=== PATIENT | male | born 1960 | race Caucasian/White ===

== ENCOUNTER 2020-02-01 10:15 | Emergency (ER) | payer OTHER ==
[2020-02-01] MEDS ORDERED: Sodium Chloride 0.9% 10 ML Syringe FLUSH PRN (10:54)
[2020-02-01] MEDS ORDERED: Sodium Chloride 0.9% 1,000 ML IV SCH (11:00)
--- NOTE | 2020-02-01 11:09 | EDM.PDOC ---
ED HPI GENERAL MEDICAL PROBLEM - General Chief Complaint: Drug or Alcohol Abuse Stated Complaint: INTOXICATED Time Seen by Provider: 02/01/20 10:41 Source of Information: Reports: Patient, Family (), RN Notes Reviewed - History of Present Illness INITIAL COMMENTS - FREE TEXT/NARRATIVE: 59 yr old male brought in by for eval of weakness, "hallucinations". He has hx of strong alcohol abuse and dependency. He claims he has not had alcohol for about 4 days. He states he is jaundiced. He has a chronic cough, nonproductive. No chest or abd pain at this time. He also smokes. Feels weak and dizzy when standing. Upper Back Pain Score (Numeric/FACES): 6 - Related Data Allergies Allergy/AdvReac Type Severity Reaction Status Date / Time Penicillins Allergy Rash Verified 02/01/20 10:30 Home Meds: Home Meds . [No Known Home Meds] 05/11/15 [History] Past Medical History - Past Health History Medical/Surgical History: Denies Medical/Surgical History Cardiovascular History: Reports: Hypertension Other Gastrointestinal History: tranaminitis Musculoskeletal History: Reports: Osteoarthritis Other Musculoskeletal History: R tibia intramedullary félix fixation Neurological History: Reports: Concussion - Infectious Disease History Infectious Disease History: Reports: Hepatitis C - Past Surgical History Neurological Surgical History: Reports: None Social & Family History - Family History HEENT: Reports: None Cardiac: Reports: [place], Other (See Below) Other Cardiac Family History: father of a NH at 51 years old Musculoskeletal: Reports: None Neurological: Reports: None Immunologic: Reports: None Oncologic: Reports: Liver, Other (See Below) Other Oncologic Family History: mother passed from liver cancer - Tobacco Use Tobacco Use Status *Q: Current Every Day Tobacco User Years of Tobacco use: 40 Packs/Tins Daily: 0.4 - Caffeine Use Caffeine Use: Reports: Coffee - Recreational Drug Use Recreational Drug Use: No ED ROS GENERAL - Review of Systems Review Of Systems: See Below Constitutional: Denies: Fever HEENT: Reports: Throat Pain (mild, pt states he has "laryngitis") Respiratory: Reports: Shortness of Breath, Cough Cardiovascular: Denies: Chest Pain GI/Abdominal: Denies: Abdominal Pain, Nausea, Vomiting Musculoskeletal: Reports: No Symptoms Skin: Reports: Change in Color (scleral icterus) Neurological: Reports: Dizziness, Weakness (generalized) ED EXAM, GENERAL - Physical Exam Exam: See Below General Appearance: Alert, Mild Distress, Other (mildly confused but answers simple questions) Eye Exam: Bilateral Eye: PERRL, Other (bilat scleral iceteris) Head: Atraumatic Neck: Supple, Other (No JVD) Respiratory/Chest: No Respiratory Distress, Lungs Clear, Normal Breath Sounds Cardiovascular: Tachycardia GI/Abdominal: Soft, Non-Tender Extremities: No: Pedal Edema, Leg Pain Neurological: Alert, No Motor/Sensory Deficits Skin Exam: Warm, Dry, Normal Color (other than scleral icteris) Course - Vital Signs Last Recorded V/S: Last Vital Signs Temp 97.4 F 02/01/20 10:25 Pulse 146 H 02/01/20 17:30 Resp 28 H 02/01/20 17:30 BP 159/87 H 02/01/20 17:30 Pulse Ox 92 L 02/01/20 17:30 - Orders/Labs/Meds Labs: Laboratory Tests 02/01/20 02/01/20 02/01/20 Range/Units 10:45 10:45 10:45 WBC 18.66 H (4.23-9.07) K/mm3 RBC 3.87 L (4.63-6.08) M/mm3 Hgb 14.1 D (13.7-17.5) gm/dl Hct 40.3 (40.1-51.0) % MCV 104.1 H (79.0-92.2) fl MCH 36.4 H (25.7-32.2) pg MCHC 35.0 (32.2-35.5) g/dl RDW Std Deviation 55.6 H (35.1-43.9) fL Plt Count 86 L D (163-337) K/mm3 MPV 11.3 (9.4-12.3) fl Neut % (Auto) 87.2 H (34.0-67.9) % Lymph % (Auto) 4.9 L (21.8-53.1) % [place] % (Auto) 5.0 L (5.3-12.2) % Eos % (Auto) 0.2 L (0.8-7.0) Baso % (Auto) 0.3 (0.1-1.2) % Neut # (Auto) 16.27 H (1.78-5.38) K/mm3 Lymph # (Auto) 0.91 L (1.32-3.57) K/mm3 [place] # (Auto) 0.94 H (0.30-0.82) K/mm3 Eos # (Auto) 0.04 (0.04-0.54) K/mm3 Baso # (Auto) 0.05 (0.01-0.08) K/mm3 Manual Slide Review Abnormal smear PT (9.7-11.7) SECONDS INR D-Dimer, Quantitative (0.19-0.50) mg/L Puncture Site ABG pH (7.35-7.45) ABG pCO2 (35.0-45.0) mmHg ABG pO2 (80.0-100.0) mmHg ABG HCO3 (22.0-26.0) meq/L ABG O2 Saturation (96.0-97.0) % ABG Base Excess (-2-2.0) John Test A-a Gradient mmHg O2 Delivery Device Oxygen Flow Rate FiO2 (21.00-100.00) % Sodium 129 L (136-145) mEq/L Potassium 4.0 (3.5-5.1) mEq/L Chloride 93 L (98-107) mEq/L Carbon Dioxide 12 L D (21-32) mEq/L Anion Gap 28.0 H (5-15) BUN 78 H D (7-18) mg/dL Creatinine 4.5 H D (0.7-1.3) mg/dL Est Cr Clr Drug Dosing 18.25 mL/min Estimated GFR (MDRD) 13 (>60) mL/min BUN/Creatinine Ratio 17.3 (14-18) Glucose 105 (74-106) mg/dL Lactic Acid (0.4-2.0) mmol/L Calcium 7.5 L (8.5-10.1) mg/dL Ferritin (26-388) ng/ml Total Bilirubin 9.4 H (0.2-1.0) mg/dL AST 122 H (15-37) U/L ALT 47 (16-63) U/L Alkaline Phosphatase 151 H (46-116) U/L Lactate Dehydrogenase 325 H (85-227) U/L C-Reactive Protein 24.7 H* (<1.0) mg/dL NT-Pro-B Natriuret Pep (0-125) pg/mL Total Protein 8.2 (6.4-8.2) g/dl Albumin 1.7 L (3.4-5.0) g/dl Globulin 6.5 gm/dL Albumin/Globulin Ratio 0.3 L (1-2) Urine Color (Yellow) Urine Appearance (Clear) Urine pH (5.0-8.0) Ur Specific [place] (1.005-1.030) Urine Protein (Negative) Urine Glucose (UA) (Negative) Urine Ketones (Negative) Urine Occult Blood (Negative) Urine Nitrite (Negative) Urine Bilirubin (Negative) Urine Urobilinogen (0.2-1.0) Ur Leukocyte Esterase (Negative) Urine RBC (0-5) /hpf Urine WBC (0-5) /hpf Ur Squamous Epith Cells (0-5) /hpf Urine Bacteria (FEW) /hpf Urine Mucus (FEW) /hpf Urine Trichomonas (NOT SEEN) Ethyl Alcohol 0.00 (0.00) gm% SARS-CoV-2 RNA (TIFFANIE) (NEGATIVE) 02/01/20 02/01/20 02/01/20 Range/Units 10:45 10:45 10:45 WBC (4.23-9.07) K/mm3 RBC (4.63-6.08) M/mm3 Hgb (13.7-17.5) gm/dl Hct (40.1-51.0) % MCV (79.0-92.2) fl MCH (25.7-32.2) pg MCHC (32.2-35.5) g/dl RDW Std Deviation (35.1-43.9) fL Plt Count (163-337) K/mm3 MPV (9.4-12.3) fl Neut % (Auto) (34.0-67.9) % Lymph % (Auto) (21.8-53.1) % [place] % (Auto) (5.3-12.2) % Eos % (Auto) (0.8-7.0) Baso % (Auto) (0.1-1.2) % Neut # (Auto) (1.78-5.38) K/mm3 Lymph # (Auto) (1.32-3.57) K/mm3 [place] # (Auto) (0.30-0.82) K/mm3 Eos # (Auto) (0.04-0.54) K/mm3 Baso # (Auto) (0.01-0.08) K/mm3 Manual Slide Review PT (9.7-11.7) SECONDS INR D-Dimer, Quantitative 20.46 H (0.19-0.50) mg/L Puncture Site ABG pH (7.35-7.45) ABG pCO2 (35.0-45.0) mmHg ABG pO2 (80.0-100.0) mmHg ABG HCO3 (22.0-26.0) meq/L ABG O2 Saturation (96.0-97.0) % ABG Base Excess (-2-2.0) John Test A-a Gradient mmHg O2 Delivery Device Oxygen Flow Rate FiO2 (21.00-100.00) % Sodium (136-145) mEq/L Potassium (3.5-5.1) mEq/L Chloride (98-107) mEq/L Carbon Dioxide (21-32) mEq/L Anion Gap (5-15) BUN (7-18) mg/dL Creatinine (0.7-1.3) mg/dL Est Cr Clr Drug Dosing mL/min Estimated GFR (MDRD) (>60) mL/min BUN/Creatinine Ratio (14-18) Glucose (74-106) mg/dL Lactic Acid (0.4-2.0) mmol/L Calcium (8.5-10.1) mg/dL Ferritin 417 H (26-388) ng/ml Total Bilirubin (0.2-1.0) mg/dL AST (15-37) U/L ALT (16-63) U/L Alkaline Phosphatase (46-116) U/L Lactate Dehydrogenase (85-227) U/L C-Reactive Protein (<1.0) mg/dL NT-Pro-B Natriuret Pep 1595 H (0-125) pg/mL Total Protein (6.4-8.2) g/dl Albumin (3.4-5.0) g/dl Globulin gm/dL Albumin/Globulin Ratio (1-2) Urine Color (Yellow) Urine Appearance (Clear) Urine pH (5.0-8.0) Ur Specific [place] (1.005-1.030) Urine Protein (Negative) Urine Glucose (UA) (Negative) Urine Ketones (Negative) Urine Occult Blood (Negative) Urine Nitrite (Negative) Urine Bilirubin (Negative) Urine Urobilinogen (0.2-1.0) Ur Leukocyte Esterase (Negative) Urine RBC (0-5) /hpf Urine WBC (0-5) /hpf Ur Squamous Epith Cells (0-5) /hpf Urine Bacteria (FEW) /hpf Urine Mucus (FEW) /hpf Urine Trichomonas (NOT SEEN) Ethyl Alcohol (0.00) gm% SARS-CoV-2 RNA (TIFFANIE) (NEGATIVE) 02/01/20 02/01/20 02/01/20 Range/Units 10:45 10:45 11:00 WBC (4.23-9.07) K/mm3 RBC (4.63-6.08) M/mm3 Hgb (13.7-17.5) gm/dl Hct (40.1-51.0) % MCV (79.0-92.2) fl MCH (25.7-32.2) pg MCHC (32.2-35.5) g/dl RDW Std Deviation (35.1-43.9) fL Plt Count (163-337) K/mm3 MPV (9.4-12.3) fl Neut % (Auto) (34.0-67.9) % Lymph % (Auto) (21.8-53.1) % [place] % (Auto) (5.3-12.2) % Eos % (Auto) (0.8-7.0) Baso % (Auto) (0.1-1.2) % Neut # (Auto) (1.78-5.38) K/mm3 Lymph # (Auto) (1.32-3.57) K/mm3 [place] # (Auto) (0.30-0.82) K/mm3 Eos # (Auto) (0.04-0.54) K/mm3 Baso # (Auto) (0.01-0.08) K/mm3 Manual Slide Review PT 20.1 H (9.7-11.7) SECONDS INR 1.90 D-Dimer, Quantitative (0.19-0.50) mg/L Puncture Site ABG pH (7.35-7.45) ABG pCO2 (35.0-45.0) mmHg ABG pO2 (80.0-100.0) mmHg ABG HCO3 (22.0-26.0) meq/L ABG O2 Saturation (96.0-97.0) % ABG Base Excess (-2-2.0) John Test A-a Gradient mmHg O2 Delivery Device Oxygen Flow Rate FiO2 (21.00-100.00) % Sodium (136-145) mEq/L Potassium (3.5-5.1) mEq/L Chloride (98-107) mEq/L Carbon Dioxide (21-32) mEq/L Anion Gap (5-15) BUN (7-18) mg/dL Creatinine (0.7-1.3) mg/dL Est Cr Clr Drug Dosing mL/min Estimated GFR (MDRD) (>60) mL/min BUN/Creatinine Ratio (14-18) Glucose (74-106) mg/dL Lactic Acid 5.6 H* (0.4-2.0) mmol/L Calcium (8.5-10.1) mg/dL Ferritin (26-388) ng/ml Total Bilirubin (0.2-1.0) mg/dL AST (15-37) U/L ALT (16-63) U/L Alkaline Phosphatase (46-116) U/L Lactate Dehydrogenase (85-227) U/L C-Reactive Protein (<1.0) mg/dL NT-Pro-B Natriuret Pep (0-125) pg/mL Total Protein (6.4-8.2) g/dl Albumin (3.4-5.0) g/dl Globulin gm/dL Albumin/Globulin Ratio (1-2) Urine Color (Yellow) Urine Appearance (Clear) Urine pH (5.0-8.0) Ur Specific [place] (1.005-1.030) Urine Protein (Negative) Urine Glucose (UA) (Negative) Urine Ketones (Negative) Urine Occult Blood (Negative) Urine Nitrite (Negative) Urine Bilirubin (Negative) Urine Urobilinogen (0.2-1.0) Ur Leukocyte Esterase (Negative) Urine RBC (0-5) /hpf Urine WBC (0-5) /hpf Ur Squamous Epith Cells (0-5) /hpf Urine Bacteria (FEW) /hpf Urine Mucus (FEW) /hpf Urine Trichomonas (NOT SEEN) Ethyl Alcohol (0.00) gm% SARS-CoV-2 RNA (TIFFANIE) Negative (NEGATIVE) 02/01/20 02/01/2001/31/20 Range/Units 11:08 14:45 14:52 WBC (4.23-9.07) K/mm3 RBC (4.63-6.08) M/mm3 Hgb (13.7-17.5) gm/dl Hct (40.1-51.0) % MCV (79.0-92.2) fl MCH (25.7-32.2) pg MCHC (32.2-35.5) g/dl RDW Std Deviation (35.1-43.9) fL Plt Count (163-337) K/mm3 MPV (9.4-12.3) fl Neut % (Auto) (34.0-67.9) % Lymph % (Auto) (21.8-53.1) % [place] % (Auto) (5.3-12.2) % Eos % (Auto) (0.8-7.0) Baso % (Auto) (0.1-1.2) % Neut # (Auto) (1.78-5.38) K/mm3 Lymph # (Auto) (1.32-3.57) K/mm3 [place] # (Auto) (0.30-0.82) K/mm3 Eos # (Auto) (0.04-0.54) K/mm3 Baso # (Auto) (0.01-0.08) K/mm3 Manual Slide Review PT (9.7-11.7) SECONDS INR D-Dimer, Quantitative (0.19-0.50) mg/L Puncture Site Lt radial Lt radial ABG pH 7.42 7.38 (7.35-7.45) ABG pCO2 20.6 L 21.8 L (35.0-45.0) mmHg ABG pO2 63.0 L 72.0 L (80.0-100.0) mmHg ABG HCO3 13.3 L 12.5 L (22.0-26.0) meq/L ABG O2 Saturation 90.4 L 92.8 L (96.0-97.0) % ABG Base Excess -8.9 L -10.6 L (-2-2.0) John Test Positive Positive A-a Gradient 61 mmHg O2 Delivery Device Room air Nasal cannula Oxygen Flow Rate 0.0 5.0 FiO2 21.00 (21.00-100.00) % Sodium (136-145) mEq/L Potassium (3.5-5.1) mEq/L Chloride (98-107) mEq/L Carbon Dioxide (21-32) mEq/L Anion Gap (5-15) BUN (7-18) mg/dL Creatinine (0.7-1.3) mg/dL Est Cr Clr Drug Dosing mL/min Estimated GFR (MDRD) (>60) mL/min BUN/Creatinine Ratio (14-18) Glucose (74-106) mg/dL Lactic Acid 5.0 H* (0.4-2.0) mmol/L Calcium (8.5-10.1) mg/dL Ferritin (26-388) ng/ml Total Bilirubin (0.2-1.0) mg/dL AST (15-37) U/L ALT (16-63) U/L Alkaline Phosphatase (46-116) U/L Lactate Dehydrogenase (85-227) U/L C-Reactive Protein (<1.0) mg/dL NT-Pro-B Natriuret Pep (0-125) pg/mL Total Protein (6.4-8.2) g/dl Albumin (3.4-5.0) g/dl Globulin gm/dL Albumin/Globulin Ratio (1-2) Urine Color (Yellow) Urine Appearance (Clear) Urine pH (5.0-8.0) Ur Specific [place] (1.005-1.030) Urine Protein (Negative) Urine Glucose (UA) (Negative) Urine Ketones (Negative) Urine Occult Blood (Negative) Urine Nitrite (Negative) Urine Bilirubin (Negative) Urine Urobilinogen (0.2-1.0) Ur Leukocyte Esterase (Negative) Urine RBC (0-5) /hpf Urine WBC (0-5) /hpf Ur Squamous Epith Cells (0-5) /hpf Urine Bacteria (FEW) /hpf Urine Mucus (FEW) /hpf Urine Trichomonas (NOT SEEN) Ethyl Alcohol (0.00) gm% SARS-CoV-2 RNA (TIFFANIE) (NEGATIVE) 02/01/20 02/01/20 Range/Units 15:10 16:32 WBC (4.23-9.07) K/mm3 RBC (4.63-6.08) M/mm3 Hgb (13.7-17.5) gm/dl Hct (40.1-51.0) % MCV (79.0-92.2) fl MCH (25.7-32.2) pg MCHC (32.2-35.5) g/dl RDW Std Deviation (35.1-43.9) fL Plt Count (163-337) K/mm3 MPV (9.4-12.3) fl Neut % (Auto) (34.0-67.9) % Lymph % (Auto) (21.8-53.1) % [place] % (Auto) (5.3-12.2) % Eos % (Auto) (0.8-7.0) Baso % (Auto) (0.1-1.2) % Neut # (Auto) (1.78-5.38) K/mm3 Lymph # (Auto) (1.32-3.57) K/mm3 [place] # (Auto) (0.30-0.82) K/mm3 Eos # (Auto) (0.04-0.54) K/mm3 Baso # (Auto) (0.01-0.08) K/mm3 Manual Slide Review PT (9.7-11.7) SECONDS INR D-Dimer, Quantitative (0.19-0.50) mg/L Puncture Site Lt radial ABG pH 7.25 L (7.35-7.45) ABG pCO2 34.1 L (35.0-45.0) mmHg ABG pO2 82.0 (80.0-100.0) mmHg ABG HCO3 14.3 L (22.0-26.0) meq/L ABG O2 Saturation 92.2 L (96.0-97.0) % ABG Base Excess -11.8 L (-2-2.0) John Test Positive A-a Gradient 517 mmHg O2 Delivery Device Oxy Oxygen Flow Rate 15.0 FiO2 90.00 (21.00-100.00) % Sodium (136-145) mEq/L Potassium (3.5-5.1) mEq/L Chloride (98-107) mEq/L Carbon Dioxide (21-32) mEq/L Anion Gap (5-15) BUN (7-18) mg/dL Creatinine (0.7-1.3) mg/dL Est Cr Clr Drug Dosing mL/min Estimated GFR (MDRD) (>60) mL/min BUN/Creatinine Ratio (14-18) Glucose (74-106) mg/dL Lactic Acid (0.4-2.0) mmol/L Calcium (8.5-10.1) mg/dL Ferritin (26-388) ng/ml Total Bilirubin (0.2-1.0) mg/dL AST (15-37) U/L ALT (16-63) U/L Alkaline Phosphatase (46-116) U/L Lactate Dehydrogenase (85-227) U/L C-Reactive Protein (<1.0) mg/dL NT-Pro-B Natriuret Pep (0-125) pg/mL Total Protein (6.4-8.2) g/dl Albumin (3.4-5.0) g/dl Globulin gm/dL Albumin/Globulin Ratio (1-2) Urine Color Dark yellow (Yellow) Urine Appearance Cloudy H (Clear) Urine pH 7.0 (5.0-8.0) Ur Specific [place] 1.025 (1.005-1.030) Urine Protein 1+ H (Negative) Urine Glucose (UA) Negative (Negative) Urine Ketones Negative (Negative) Urine Occult Blood 2+ H (Negative) Urine Nitrite Negative (Negative) Urine Bilirubin 1+ H (Negative) Urine Urobilinogen 1.0 (0.2-1.0) Ur Leukocyte Esterase 1+ H (Negative) Urine RBC 10-20 H (0-5) /hpf Urine WBC 50-75 H (0-5) /hpf Ur Squamous Epith Cells 0-5 (0-5) /hpf Urine Bacteria Many H (FEW) /hpf Urine Mucus Few (FEW) /hpf Urine Trichomonas Few H (NOT SEEN) Ethyl Alcohol (0.00) gm% SARS-CoV-2 RNA (TIFFANIE) (NEGATIVE) Meds: Medications Discontinued Medications Generic Name Dose Route Start Last Admin Trade Name Freq PRN Reason Stop Dose Admin Bumetanide Confirm 02/01/20 14:52 02/01/20 15:55 Bumex Administered 02/01/20 14:53 Not Given Dose 1 mg .ROUTE .STK-MED ONE Bumetanide 1 mg 02/01/20 15:53 02/01/20 15:20 Bumex IVPUSH 02/01/20 15:54 1 mg ONETIME ONE Administration Ceftriaxone Sodium Confirm 02/01/20 12:28 Rocephin Administered 02/01/20 12:29 Dose 1 gm IV .STK-MED ONE Ceftriaxone Sodium Confirm 02/01/20 12:32 02/01/20 12:40 Rocephin Administered 02/01/20 12:33 2 gm Dose Administration 2 gm IV .STK-MED ONE Furosemide 40 mg 02/01/20 15:32 02/01/20 15:39 Lasix IVPUSH 02/01/20 15:33 40 mg NOW ONE Administration Sodium Chloride 1,000 mls @ 999 mls/hr 02/01/20 11:00 02/01/20 11:04 Normal Saline IV 999 mls/hr ONETIME MAO Administration Sodium Chloride Confirm 02/01/20 12:28 Normal Saline Administered 02/01/20 12:29 Dose 100 mls @ as directed .ROUTE .STK-MED ONE Sodium Chloride Confirm 02/01/20 12:33 Normal Saline Administered 02/01/20 12:34 Dose 100 mls @ as directed .ROUTE .STK-MED ONE Lactated Ringer's Confirm 02/01/20 13:36 Ringers, Lactated Administered 02/01/20 13:37 Dose 1,000 mls @ as directed .ROUTE .STK-MED ONE Sodium Chloride Confirm 02/01/20 13:53 Normal Saline Administered 02/01/20 13:54 Dose 500 mls @ as directed .ROUTE .STK-MED ONE Nitroglycerin/Dextrose 25 mg in 250 mls @ 3 mls/hr 02/01/20 15:30 02/01/20 15:54 Nitroglycerin 25 Mg/D5w 250 Ml IV 20 mcg/min TITRATE MAO 12 mls/hr Titration Protocol 5 MCG/MIN Azithromycin 500 mg/ Sodium 250 mls @ 250 mls/hr 02/01/20 15:37 02/01/20 14:00 Chloride IV 02/01/20 16:36 250 mls/hr ONETIME ONE Administration Sodium Chloride Confirm 02/01/20 16:49 Normal Saline Administered 02/01/20 16:50 Dose 250 mls @ as directed .ROUTE .STK-MED ONE Lorazepam Confirm 02/01/20 13:35 02/01/20 14:44 Ativan Administered 02/01/20 13:36 Not Given Dose 2 mg .ROUTE .STK-MED ONE Lorazepam Confirm 02/01/20 14:06 02/01/20 14:44 Ativan Administered 02/01/20 14:07 Not Given Dose 2 mg .ROUTE .STK-MED ONE Lorazepam Confirm 02/01/20 14:16 02/01/20 14:44 Ativan Administered 02/01/20 14:17 Not Given Dose 2 mg .ROUTE .STK-MED ONE Lorazepam 1 mg 02/01/20 14:16 02/01/20 15:45 Ativan IVPUSH 1 mg Q4H PRN Administration Withdrawal Symptoms Protocol Morphine Sulfate 2 mg 02/01/20 15:32 02/01/20 15:39 Morphine IVPUSH 02/01/20 15:33 2 mg ONETIME ONE Administration Sodium Chloride 10 ml 02/01/20 10:54 02/01/20 10:57 Saline Flush FLUSH 10 ml ASDIRECTED PRN Administration Keep Vein Open Vancomycin HCl Confirm 02/01/20 13:53 02/01/20 14:00 Vancomycin Administered 02/01/20 13:54 1.5 gm Dose Administration 2 gm .ROUTE .STK-MED ONE - Re-Assessments/Exams Free Text/Narrative Re-Assessment/Exam: 02/01/20 14:37. [facility] has been down for the last 3 hours. I had made arrangements for transfer to [facility] with dx of sepsis, renal failure and alcohol withdrawal. Dr Orantes accepting Phys. Hx of underlying COPD, alcohol abuse and dependency. WBC 18,700 with a L shift. Treated with 1 liter NS bolus followed by 2 liters LR over the next 2 hr and than continued with a LR at 500 per hr. Have been notified that he is more agitated, IV ativan ordered. 14:50. Pt is more tachypnic, dropping his sats. Suspect fluid overload from not handling fluid given to treat his sepsis, severe dehydration. He is less alert, no longer making eye contact or answering questions. BP is good, heart rate continues in the mid 130's. Have ordered nitro drip, bumex 1 mg IV, ABG's. 15:14.Repeat ABG's show p02 of 72, 7.38, 21.8. have ordered lasix [address] [facility] has nocritical care beds so transfer to [facility] can celed. Dr Orantes notified. 02/01/20 16:1915:[address] [facility] on full diversion. [facility] unable to accept pt. repeat CXR now shows central CHF. Pt now has fluid overload. 15:50 Dr Neri, [facility] accepts patient for transfer. He will be admitted to their critical care unit. Pt's vitals, assessment about the same. Have been titrating nitro drip. Have ordered morphine 2 mg IV. He has decent urine output, about 800 ml fluid out since [place] placement. Will be about 90 minutes for [place] flight team to get here, fixed wing. 16:05. Resp. status about the same. sats 89 to 92 %. Have discussed with RT, will go to [facility], 15 L which should be an FiO2 of about 90 %. Will recheck ABG's. [place] [employer] team at the airport. 02/01/20 16:42, [place] flight team is here. Repeat ABG's show p02 of 82, improved but now C02 of 34.1, not high but elevated from prior C02 of 21.8, ph no 7.25. He is not safe for the flight despite improved P02. He will be intu bated now prior to transport. Departure - Departure Time of Disposition: 15:30 Disposition: DC/Tfer to Acute Hospital 02 Condition: Critical Clinical Impression: Alcohol withdrawal syndrome, Respiratory failure Sepsis Qualifiers: Sepsis type: sepsis due to unspecified organism Sepsis acute organ dysfunction status: with acute organ dysfunction Severe sepsis acute organ dysfunction type: acute renal failure Acute renal failure type: unspecified Altered mental status Qualifiers: Altered mental status type: unspecified Qualified Code(s): R41.82 - Altered mental status, unspecified - Discharge Information Referrals: PCP,None [Primary Care Provider] - Forms: ED Department Discharge Sepsis Event Note (ED) - Evaluation Sepsis Screening Result: No Definite Risk
[2020-02-01] MEDS ORDERED: cefTRIAXone 1 GM AdvVial IV ONE (12:28)
[2020-02-01] MEDS ORDERED: Sodium Chloride 0.9% 0 ML ONE (12:28)
[2020-02-01] MEDS ORDERED: cefTRIAXone 2 GM AdvVial IV ONE (12:32)
[2020-02-01] MEDS ORDERED: Sodium Chloride 0.9% 100 ML ONE (12:33)
[2020-02-01] MEDS ORDERED: LORazepam 2 MG/ML SDV ONE ×3 (13:35→14:16)
[2020-02-01] MEDS ORDERED: Lactated Ringers 1,000 ML ONE (13:36)
[2020-02-01] MEDS: LORazepam 2 MG/ML SDV IVPUSH PRN ×4 (13:40→15:45)
[2020-02-01] MEDS ORDERED: Sodium Chloride 0.9% 500 ML ONE (13:53)
[2020-02-01] MEDS ORDERED: Vancomycin 1 GM SDV ONE (13:53)
[2020-02-01] MEDS ORDERED: Bumetanide 1 MG/4 ML MDV ONE (14:52)
[2020-02-01] MEDS: Nitroglycerin/D5W 25 MG/250 ML BOTTLE IV SCH ×2 (15:22→15:53)
[2020-02-01] MEDS ORDERED: Furosemide 40 MG/4 ML VIAL IVPUSH ONE (15:32)
[2020-02-01] MEDS ORDERED: Morphine 2 MG/ML SYRINGE IVPUSH ONE (15:32)
[2020-02-01] MEDS ORDERED: Azithromycin 500 MG in Sodium Chloride 0.9% 250 ML IV ONE (15:37)
[2020-02-01] MEDS ORDERED: Bumetanide 1 MG/4 ML MDV IVPUSH ONE (15:53)
[2020-02-01] MEDS ORDERED: Sodium Chloride 0.9% 250 ML ONE (16:49)
[2020-02-01 18:07] VITALS: BP 159/87; PULSE 146
--- NOTE | 2020-02-11 11:28 | CR ---
PROCEDURE INFORMATION: Exam: XR Chest, 1 View Exam date and time: 02/01/2020 12:01 PM Age: 59 years old Clinical indication: Cough and other: Hypoxia TECHNIQUE: Imaging protocol: XR of the chest Views: 1 view. COMPARISON: CR Chest 1V Frontal 10/08/2015 9:27 AM FINDINGS: Lungs: Chronic appearing interstitial changes are present within the lung parenchyma with areas of patchy airspace opacity within the periphery of the left lung. Pneumonia is possible. Consider atypical variants. There is no pulmonary edema. Pleural space: Unremarkable. No pleural effusion. No pneumothorax. Heart/Mediastinum: Unremarkable. No cardiomegaly. Bones/joints: Unremarkable. IMPRESSION: Chronic appearing interstitial change with possible left-sided pneumonia. Consider atypical/viral etiologies. Thank you for allowing us to participate in the care of your patient. Dictated and Authenticated by: Raad Rojas MD 02/01/2020 1:37 PM Central Time ([place] & [place]) CONFIDENTIALITY STATEMENT This report is intended only for use by the referring physician, and only in accordance with law. If you received this in error, call [phone]. Page 1 of 1 [facility]
--- NOTE | 2020-02-11 11:29 | CR ---
PROCEDURE INFORMATION: Exam: XR Chest, 1 View Exam date and time: 02/01/2020 2:23 PM Age: 59 years old Clinical indication: Chest pain; Type not specified TECHNIQUE: Imaging protocol: XR of the chest Views: 1 view. COMPARISON: CR (Chest, CHEST, CHEST_1_VIEW) 02/01/2020 12:01 PM FINDINGS: Lungs: Cephalization of pulmonary vessels mild alveolar airspace opacity. No pneumonia present. Pleural space: Unremarkable. No pleural effusion. No pneumothorax. Heart/Mediastinum: The heart is moderately enlarged. Bones/joints: Unremarkable. IMPRESSION: Moderate grade CHF. Thank you for allowing us to participate in the care of your patient. Dictated and Authenticated by: Raad Rojas MD 02/01/2020 3:48 PM Central Time ([place] & [place]) CONFIDENTIALITY STATEMENT This report is intended only for use by the referring physician, and only in accordance with law. If you received this in error, call [phone]. Page 1 of 1 [facility]
== END 2020-02-01 17:30 ==
LOC: JD.ED 10:15
DX: A41.9 Sepsis, unspecified organism (principal); R65.20 Severe sepsis without septic shock; N17.9 Acute kidney failure, unspecified; J96.90 Respiratory failure, unspecified, unspecified whether with hypoxia or hypercapnia; F10.239 Alcohol dependence with withdrawal, unspecified; R41.82 Altered mental status, unspecified; I10 Essential (primary) hypertension; J44.9 Chronic obstructive pulmonary disease, unspecified; F17.210 Nicotine dependence, cigarettes, uncomplicated; Z20.828 Contact with and (suspected) exposure to other viral communicable diseases; Z88.0 Allergy status to penicillin
CPT/HCPCS: 31500; 36415; 36600; 71045; 80053; 80307; 81001; 82728; 82803; 83605; 83615; 83880; 85025; 85379; 85610; 86140; 87040; 87077; 87186; 87635; 93005; 96365; 96366; 96367; 96368; 96375; 96376; 99285; J0456; J0696; J1940; J2060; J2270; J3370; J3490; J7030; J7050; 93010; 99284; U0002